=== PATIENT | male | born 1950 | race Caucasian/White ===

== ENCOUNTER 2017-07-04 09:49 | Emergency (ER) | payer MEDICARE, BC ==
--- NOTE | 2017-07-04 10:51 | EDM.PDOC ---
ED HPI GENERAL MEDICAL PROBLEM - General Chief Complaint: Back Pain or Injury Stated Complaint: BACK PAIN Time Seen by Provider: 07/04/17 09:56 Source of Information: Reports: Patient, Family (), RN Notes Reviewed History Limitations: Reports: No Limitations - History of Present Illness INITIAL COMMENTS - FREE TEXT/NARRATIVE: The patient states that he developed sudden onset of severe sharp lower back pain that radiated down the back of both of his thighs, around 08:30 this morning, as he was reaching for his toothbrush. The pain brought him to his knees. When he got up, he continued to have low back pain, but the radiation down the back of both of his size had resolved. As he was getting dressed about 10 minutes later, he had a second occurrence, again with brief radiation down both thighs. At this time, the patient has continued low back pain, but no lower extremity pain. The patient denies having had any tingling, numbness, or weakness to either lower extremity. He denies any bowel or bladder incontinence , nor any saddle anesthesia. The patient states that he has had low back pain in the past, but nothing like today's presentation. 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 The patient denies urinary symptoms, although states that he recently had a urinalysis that showed blood in it. The patient's PCP is Gela Peters. Lower Back Pain Score (Numeric/FACES): 8 - Related Data Allergies Allergy/AdvReac Type Severity Reaction Status Date / Time diazepam [From Valium] Allergy Irritabilit Verified 07/04/17 10:02 y Home Meds: Home Meds Fexofenadine/Pseudoephedrine [Joslyn-D 24 Hour Tablet] 1 tab PO ASDIRECTED PRN 07/04/17 [History] Orphenadrine [Norflex] 1 tab PO Q12H #20 tab.er 07/04/17 [Rx] Past Medical History HEENT History: Reports: Allergic Rhinitis - Past Surgical History HEENT Surgical History: Reports: Tonsillectomy, Other (See Below) (Facial injury repairs) GI Surgical History: Reports: Appendectomy Musculoskeletal Surgical History: Reports: Other (See Below) (Bilateral knee repairs, both open) Social & Family History - Tobacco Use Smoking Status *Q: Former Smoker Used Tobacco, but Quit: Yes - Caffeine Use Caffeine Use: Reports: Soda - Alcohol Use Alcohol Use History: No - Recreational Drug Use Recreational Drug Use: No - Living Situation & Occupation Living situation: Reports: , with Spouse 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) ED ROS GENERAL - Review of Systems Review Of Systems: See Below Constitutional: Reports: No Symptoms HEENT: Reports: No Symptoms Respiratory: Reports: No Symptoms Cardiovascular: Reports: No Symptoms Endocrine: Reports: No Symptoms GI/Abdominal: Reports: No Symptoms : Reports: No Symptoms Musculoskeletal: Reports: No Symptoms Skin: Reports: No Symptoms Neurological: Reports: No Symptoms Psychiatric: Reports: No Symptoms Hematologic/Lymphatic: Reports: No Symptoms Immunologic: Reports: No Symptoms ED EXAM,LOWER BACK PAIN/INJURY - Physical Exam Exam: See Below Exam Limited By: No Limitations General Appearance: Alert, WD/WN, No Apparent Distress, Anxious Eye Exam: Bilateral Eye: Normal Inspection Ears: Normal External Exam, Hearing Grossly Normal Nose: Normal Inspection, No Blood Throat/Mouth: Normal Inspection, Normal Lips, Normal Voice, No Airway Compromise Head: Atraumatic, Normocephalic Neck: Normal Inspection, Full Range of Motion Respiratory/Chest: No Respiratory Distress, Lungs Clear, Normal Breath Sounds, No Accessory Muscle Use Cardiovascular: Normal Peripheral Pulses, Regular Rate, Rhythm, No Gallop, No JVD, No Murmur, No Rub GI/Abdominal: Normal Bowel Sounds, Soft, Non-Tender, No Organomegaly, No Distention, No Abnormal Bruit, No Mass (Male) Exam: Deferred Rectal (Males) Exam: Deferred Back Exam: Normal Inspection, Full Range of Motion, Vertebral Tenderness (Over the L5 spinous process only, and not consistently. No visible abnormality to this area, such as swelling, erythema, ecchymosis, or abrasion.), Other ( Straight leg raise was negative to 90 bilaterally. The patient was able to stand and flex to 90, although this induced sudden pain at 90. He was unwilling to attempt extension of the back. The patient was able to tilt to the left to approximately 15, to the right to approximately 10. He is able to twist his spine bilaterally to approximately 20. Unilateral knee bend was normal bilaterally.). No: CVA Tenderness (L), CVA Tenderness (R), Decreased Range of Motion, Muscle Spasm, Paraspinal Tenderness Extremities: Normal Inspection, Normal Range of Motion, Non-Tender, No Pedal Edema, Normal Capillary Refill Neurological: Alert, Normal Dorsiflexion, Normal Plantar Flexion, No Motor/ Sensory Deficits, Oriented x 3 Psychiatric: Normal Affect, Anxious Skin Exam: Warm, Dry, Intact, Normal Color, No Rash Lymphatic: No Adenopathy Course - Vital Signs Last Recorded V/S: Last Vital Signs Temp 36.7 C 07/04/17 09:58 Pulse 59 L 07/04/17 09:58 Resp 20 07/04/17 09:58 BP 144/87 H 07/04/17 09:58 Pulse Ox 98 07/04/17 09:58 - Orders/Labs/Meds Orders: Active Orders 24 hr Category Date Time Status Lumbar Spine 2 or 3V [CR] Stat Exams 07/04/17 10:34 Taken Labs: Laboratory Tests 07/04/17 Range/Units 10:40 Urine Color Yellow (Yellow) Urine Appearance Clear (Clear) Urine pH 6.0 (5.0-8.0) Ur Specific [place] 1.025 (1.005-1.030) Urine Protein Trace H (Negative) Urine Glucose (UA) Negative (Negative) Urine Ketones Negative (Negative) Urine Occult Blood 2+ H (Negative) Urine Nitrite Negative (Negative) Urine Bilirubin Negative (Negative) Urine Urobilinogen 0.2 (0.2-1.0) Ur Leukocyte Esterase Negative (Negative) Urine RBC 5-10 H (0-5) /hpf Urine WBC 0-5 (0-5) /hpf Ur Epithelial Cells 0-5 (0-5) /hpf Urine Bacteria Few (FEW) /hpf Urine Mucus Few (FEW) /hpf - Re-Assessments/Exams Free Text/Narrative Re-Assessment/Exam: 07/04/17 11:08 2 view radiographs of the lumbar spine is read by Dr. Boss as: 1. Anterior wedging of T11. Age of this is indeterminate. 2. Mild diffuse degenerative change as described above. 07/04/17 11:21 The patient's urinalysis confirms occult blood, however, his lumbar radiographs do not suggest metastatic disease, such as from prostate malignancy. The patient 's spinal examination is, for the most part, unremarkable, only inducing severe pain when flexed to 90. This finding is not consistent with a herniated intervertebral disc. I suspect that the patient's pain is due to muscle spasm, likely due to recent overuse. I will start the patient on Norflex, and prescribed the same. I will recommend [id number] ibuprofen. If the patient 's symptoms persist, he would benefit from a MRI. I will refer the patient to Dr. Cornejo for further evaluation of his microscopic hematuria. Departure - Departure Time of Disposition: 11:32 Disposition: Home, Self-Care 01 Condition: Good Clinical Impression: Low back pain radiating to both legs, Microscopic hematuria - Discharge Information Referrals: Kenneth Peters MD [Primary Care Provider] - Davon Cornejo MD [Physician] - Forms: ED Department Discharge Additional Instructions: You were seen in the emergency room for severe pain in your lower back radiating down the back of both of her thighs, twice this morning. Workup in the ER included a urinalysis and x-rays of your lower back. The urinalysis confirms that you have blood in your urine. This will need to be evaluated further. Please follow-up with the Urologist Dr. Cornejo at the next available appointment. The x-rays of your lower back appear to be normal. Based on your examination, the cause of your lower back pain is MOST LIKELY due to a muscle spasm or strain. You have been started on the muscle relaxant Norflex. Take one tablet every 12 hours, as prescribed. Take [id number] ibuprofen, 2-3 tablets (400-600 mg) every 8 hours, with food, as needed for pain. It is important that you stay active, although we do not want you to further strain your back. Bending over to pick things up, or twisting your back is not advised. Swimming is the best exercise, but walking is good, too. Do not lie in bed. If you continue to have low back symptoms by this coming Friday or Friday, we recommend you follow-up with your PCP, Kenneth Peters, to arrange for a MRI of your lower back. If any other problems, please do not hesitate to return to the ER. - My Orders Last 24 Hours: My Active Orders 07/04/17 10:34 Lumbar Spine 2 or 3V [CR] Stat - Assessment/Plan Last 24 Hours: My Active Orders 07/04/17 10:34 Lumbar Spine 2 or 3V [CR] Stat
[2017-07-04 10:53] VITALS: BP 144/87
--- NOTE | 2017-07-04 11:30 | CR ---
Lumbar spine: AP and lateral views of the lumbar spine were obtained. Disc space narrowing is noted within the lower thoracic spine and throughout the lumbar spine. Scattered endplate osteophytes are seen. Slight anterior wedging is noted of T11, age of this is indeterminate. Other vertebral body heights are maintained. Pedicles are intact. Visualized transverse and spinous processes are intact. Sacroiliac joints are within normal limits. Impression: 1. Anterior wedging of T11. Age of this is indeterminate. 2. Mild diffuse degenerative change as described above. Diagnostic code #3
[2017-07-04] MEDS ORDERED: Orphenadrine 100 MG Tab.ER PO STA (11:31)
[2017-07-04] MEDS ORDERED: Ibuprofen 600 MG Tab PO ONE (11:32)
== END 2017-07-04 11:50 | disposition home or self-care (01) ==
LOC: JD.ED 09:49
DX: M54.5 Low back pain (principal); R31.29 Other microscopic hematuria; Z98.890 Other specified postprocedural states; Z90.49 Acquired absence of other specified parts of digestive tract; Z87.890 Personal history of sex reassignment; Z88.8 Allergy status to other drugs, medicaments and biological substances
CPT/HCPCS: 72100; 81001; 99284; A9270; 99283

== ENCOUNTER 2020-06-07 16:49 | Emergency (ER) | payer MEDICARE, BC ==
[2020-06-07 17:06] VITALS: BP 150/83; PULSE 70
--- NOTE | 2020-06-07 17:44 | EDM.PDOC ---
ED HPI GENERAL MEDICAL PROBLEM - General Chief Complaint: Upper Extremity Injury/Pain Stated Complaint: UNABLE TO MOVE RIGHT ARM Time Seen by Provider: 06/07/20 17:11 Source of Information: Reports: Patient, RN Notes Reviewed History Limitations: Reports: No Limitations - History of Present Illness INITIAL COMMENTS - FREE TEXT/NARRATIVE: Patient is a 7-year-old male who presents to the ED for evaluation of a right arm complaint. Patient notes he was in his tractor, and he went to get out, when he felt a throbbing pain in his right arm, and appreciated there is very difficult to move. He states he did not have any sort of trauma, or thinks that he is injured the arm, but he does appreciate a large firm knot at his insertion of his bicep area on his right arm. Patient states very painful to move the arm, and any direction, other than moving at the shoulder, he states he cannot flex his arm or extend his arm at the elbow joint, he states is very hard to pronate/supinate at the wrist. Patient denies any other sort of sick-like symptoms, fever/chills, nausea/vomiting/diarrhea, patient notes he is right-hand dominant. Right Upper Arm Pain Score (Numeric/FACES): 6 - Related Data Allergies Allergy/AdvReac Type Severity Reaction Status Date / Time diazepam [From Valium] Allergy Severe Irritabilit Verified 06/07/20 17:06 y Home Meds: Home Meds Acetaminophen/HYDROcodone [[place] 325-5 MG] 1 tab PO Q6H PRN #20 tablet 06/07/20 [Rx] Past Medical History HEENT History: Reports: Allergic Rhinitis - Past Surgical History HEENT Surgical History: Reports: Tonsillectomy, Other (See Below) GI Surgical History: Reports: Appendectomy Musculoskeletal Surgical History: Reports: Shoulder Surgery Social & Family History - Tobacco Use Smoking Status *Q: Never Smoker - Caffeine Use Caffeine Use: Reports: Soda - Living Situation & Occupation Living situation: Reports: , with Spouse 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 ED EXAM, GENERAL - Physical Exam Exam: See Below Exam Limited By: No Limitations General Appearance: Alert, WD/WN, No Apparent Distress Respiratory/Chest: No Respiratory Distress, Lungs Clear, Normal Breath Sounds, No Accessory Muscle Use, Chest Non-Tender Cardiovascular: Normal Peripheral Pulses, Regular Rate, Rhythm, No Murmur Peripheral Pulses: 3+: Radial (L), Radial (R) Extremities: Non-Tender, Normal Capillary Refill, Limited Range of Motion (of right arm at elbow joint. He can move the arm at the shoulder without much difficulty. Painful ROM with flexion/extension of R elbow, as well as pronation/supination movements.), Other (There does appear to be a large firm ball in the area of the right bicep, bicep itself does appear to be closer to the elbow, suspect possible bicep tendon tear) Neurological: Alert, Oriented, Normal Cognition, Sensory/Motor Deficit (motor deficit of right arm) Psychiatric: Normal Affect, Normal Mood Skin Exam: Warm, Dry, Intact, Normal Color, No Rash Course - Vital Signs Last Recorded V/S: Last Vital Signs Temp 97.6 F 06/07/20 17:03 Pulse 70 06/07/20 17:03 Resp 20 06/07/20 17:03 BP 150/83 H 06/07/20 17:03 Pulse Ox 96 06/07/20 17:03 - Re-Assessments/Exams Free Text/Narrative Re-Assessment/Exam: 06/07/20 17:57 Patient presents to the ED for the evaluation of his right arm issue, I do highly suspect that he is ruptured his biceps tendon, will have him follow-up with Dr. Bustos at his clinic, and give him something for pain management in the meantime. Departure - Departure Time of Disposition: 17:58 Disposition: Home, Self-Care 01 Condition: Good Clinical Impression: Biceps tendon rupture, proximal Qualifiers: Encounter type: initial encounter Laterality: right Qualified Code(s): S46.211A - Strain of muscle, fascia and tendon of other parts of biceps, right arm, initial encounter - Discharge Information *PRESCRIPTION DRUG MONITORING PROGRAM REVIEWED*: Yes *COPY OF PRESCRIPTION DRUG MONITORING REPORT IN PATIENT FELIX: No Instructions: Proximal Biceps Tendon Tear Referrals: PCP,Not In Area [Primary Care Provider] - Additional Instructions: You have been evaluated in the ED for your right arm pain. You may use ice/heat as needed if it provides pain relief. You may take Tylenol 500 mg or ibuprofen 600mg q6 hrs for pain relief. Please do so until you have a tolerable level of pain with activity. Do not exceed 4000mg Tylenol, Do not exceed 3200mg ibuprofen in a 24 hour time period. You were given a prescription for a strong pain medication, hydrocodone/acetaminophen 5/325, please take 1 tab every 6 hours as needed for pain not relieved by Tylenol or ibuprofen alone. Please note this does contain Tylenol in it, so do not take more than 4000 mg in a 24-hour time span. These medications can be addictive, so please take as few as possible to achieve adequate pain control. These meds can also be quite constipating, recommend that you increase your oral fluid intake and take a stool softener like MiraLAX while taking these medications. Please call Ortho for follow-up and further evaluation Dr. Bustos is our orthopedic surgeon, his office number is [phone]. Please call and set up an appointment as soon as possible for further management. Please return to ED if your symptoms should change or worsen. Sepsis Event Note (ED) - Evaluation Sepsis Screening Result: No Definite Risk - Focused Exam Vital Signs: Vital Signs Temp Pulse Resp BP Pulse Ox 06/07/20 17:03 97.6 F 70 20 150/83 H 96
[2020-06-07] MEDS ORDERED: HYDROmorphone 0.5 MG/0.5 ML Syringe IM ONE (17:49)
== END 2020-06-07 18:26 | disposition home or self-care (01) ==
LOC: JD.ED 16:49
DX: S46.211A Strain of muscle, fascia and tendon of other parts of biceps, right arm, initial encounter (principal); Z88.8 Allergy status to other drugs, medicaments and biological substances; X58.XXXA Exposure to other specified factors, initial encounter
CPT/HCPCS: 96372; 99283; J1170